=== PATIENT | female | born 1975 | race Caucasian/White ===

== ENCOUNTER 2023-10-14 15:20 | Emergency (ER) | payer OTHER ==
[~2023-10-14] VITALS: Ht 154.9 cm; Wt 70.9 kg
[2023-10-14 16:59] VITALS: TEMP 98.6
[2023-10-14] MEDS ORDERED: SODIUM CHLORIDE 0.9% 1,000 ML IV ONE (18:45)
[2023-10-14] MEDS ORDERED: METOCLOPRAMIDE HCL 5 MG/ML 2 ML VIAL IVP ONE (18:45)
[2023-10-14 18:59] LABS: BASOPHILS % (AUTO) 0.5 % (0.0-2.0); EOSINOPHILS % (AUTO) 2.2 % (1.0-6.0); HEMATOCRIT 32.1 % (36-46); HEMOGLOBIN 10.4 g/dL (12.0-16.0); LYMPHOCYTES # (AUTO) 2.1 K/uL (1.0-4.8); LYMPHOCYTES % (AUTO) 43.6 % (22.0-44.0); MEAN CORPUSCULAR HEMOGLOBIN 23.1 pg (26.0-34.0); MEAN CORPUSCULAR HGB CONC 32.3 G/dL (31.0-37.0); MEAN CORPUSCULAR VOLUME 71 fL (80-100); MONOCYTES # (AUTO) 0.3 K/uL (0.1-1.0); MONOCYTES % (AUTO) 6.4 % (2.0-9.0); NEUTROPHILS # (AUTO) 2.3 K/uL (1.8-7.7); NEUTROPHILS % (AUTO) 47.3 % (40.0-70.0); PLATELET COUNT (AUTO) 332 K/uL (150-450); RED BLOOD CELL COUNT(AUTO) 4.49 MIL/uL (4.00-5.20); RED CELL DISTRIBUTION WIDTH 17.7 % (11.5-14.5); WHITE BLOOD COUNT (AUTO) 4.9 K/uL (4.5-11.0)
[2023-10-14 19:08] LABS: ANION GAP 11 mmol/L (8-16); CALCIUM, TOTAL 9.5 mg/dL (8.8-10.5); CARBON DIOXIDE 28 mmol/L (22-29); CHLORIDE 101 mmol/L (98-107); CREATININE 0.58 mg/dL (0.60-1.30); GLOMERULAR FILTR. RATE CALC > 60 mL/min (>60); GLUCOSE,RANDOM 76 mg/dL (70-110); POTASSIUM 4.2 mmol/L (3.5-5.1); SODIUM SERUM 140 mmol/L (136-145); UREA NITROGEN, BLOOD 5 mg/dL (7-18)
[2023-10-14 19:20] LABS: ALANINE AMINOTRANSFERASE 37 U/L (12-78); ALBUMIN 3.9 g/dL (3.4-5.0); ALKALINE PHOSPHATASE 71 U/L (46-116); ASPARTATE AMINOTRANSFERASE 28 U/L (15-37); BILIRUBIN,TOTAL 0.3 mg/dL (0.1-1.0); LIPASE 29 U/L (16-77)
[2023-10-14 19:34] LABS: RBC MORPHOLOGY COMMENT ABNORMAL RBC MORPH
[2023-10-14 21:03] LABS: APPEARANCE,URINE HAZY (CLEAR); BILIRUBIN,URINE NEGATIVE (NEGATIVE); COLOR,URINE YELLOW (YELLOW); GLUCOSE, URINE (UA) NEGATIVE (NEGATIVE); KETONES,URINE 40-60 mg/dL (NEGATIVE); LEUKOCYTE ESTERASE ,URINE MODERATE (NEGATIVE); NITRATE,URINE NEGATIVE (NEGATIVE); OCCULT BLOOD,URINE LARGE (NEGATIVE); PROTEIN,URINE 100-200,SEE CONFIRM mg/dL (NEGATIVE); SPECIFIC GRAVITIY, URINE 1.026 (1.003-1.030); UROBILINOGEN,URINE <=1.0 mg/dL (<=1.0)
[2023-10-14 21:23] LABS: SULFOSALICYLIC ACID,URINE 1+ (Negative)
[2023-10-14 21:28] LABS: RBC,URINE 51-100 /HPF (0-2)
[2023-10-14 21:29] LABS: BACTERIA,URINE Moderate /HPF (None Seen); SQUAMOUS EPITHELIAL CELL,UR Many /LPF (None Seen); WBC,URINE >100 /HPF (0-5)
[2023-10-14 23:51] VITALS: BP 108/62; PULSE 65; RESP 18
== END 2023-10-15 00:34 ==
LOC: EMS 15:33
DX: R11.2 Nausea with vomiting, unspecified (principal); E11.9 Type 2 diabetes mellitus without complications; Z87.891 Personal history of nicotine dependence; Z88.0 Allergy status to penicillin
CPT/HCPCS: 99285; 96374; 96361; 80053; 81001; 83690; 84703; 85025; 36415; 87086; 87186; 74022; 93005; J2765; J7030; 81002